=== PATIENT | male | born 1980 | race Two or more races ===

== ENCOUNTER → 2023-06-02 | Outpatient (REF) | payer BC | LOC: M SFHCDERM 11:11 | PROVIDERS: ATTEND Nurse Practitioner Family | DX: R21 Rash and other nonspecific skin eruption (principal) ==

== ENCOUNTER → 2024-09-27 | Outpatient (REF) | payer BC | LOC: M SFHCDERM 16:39 | PROVIDERS: ATTEND Nurse Practitioner Family | DX: L08.9 Local infection of the skin and subcutaneous tissue, unspecified (principal) ==